=== PATIENT | female | born 1965 | race Caucasian/White ===

== ENCOUNTER 2023-01-31 11:21 | Emergency (ER) | payer BC ==
[~2023-01-31] VITALS: Ht 182.9 cm; Wt 106.6 kg
--- NOTE | 2023-01-31 13:31 | EKG ---
[facility] [address] [facility] [place], [place] [address] Signed Atrial fibrillation with rapid ventricular response ST \T\ T wave abnormality, consider inferior ischemia Abnormal ECG No previous ECGs available Confirmed by MARY KAY BADILLO MD ([id number]) on 01/31/2023 1:31:21 PM Electronically Signed By: MARY KAY BADILLO MD 01/31/23 1331 PATIENT NAME: ANI WATSON Electrocardiogram DATE OF : 63 PHYSICIAN: MARY KAY BADILLO MD REPORT #: [id number] REPORT IS CONFIDENTIAL AND NOT TO BE RELEASED WITHOUT AUTHORIZATION
[2023-01-31] MEDS ORDERED: ELIQUIS2.5 MG PO (14:36)
--- NOTE | 2023-02-03 17:18 | EKG ---
[facility] [address] [place] [address] Signed Normal sinus rhythm Normal ECG When compared with ECG of 31-JAN-2023 11:27, Sinus rhythm has replaced Atrial fibrillation Vent. rate has decreased BY 69 BPM Non-specific change in ST segment in Inferior leads T wave inversion no longer evident in Inferior leads Confirmed by Kelly Alexander MD () on 02/03/2023 5:18:26 PM Electronically Signed By: KELLY ALEXANDER MD 02/03/23 1718 PATIENT NAME: ANI WATSON Electrocardiogram DATE OF : 63 PHYSICIAN: KELLY ALEXANDER MD REPORT #: [id number] REPORT IS CONFIDENTIAL AND NOT TO BE RELEASED WITHOUT AUTHORIZATION
== END 2023-01-31 14:38 | disposition home or self-care (01) ==
LOC: ED 11:21
DX: I48.91 Unspecified atrial fibrillation (principal)
CPT/HCPCS: 36415; 80053; 83735; 84443; 84484; 85025; 92960; 93005; 93010; 99285-25; J2704; J3475; J7030